=== PATIENT | female | born 1940 | race Caucasian/White ===

== ENCOUNTER 2016-10-22 11:02 | Emergency (ER) | payer OTHER ==
[~2016-10-22] VITALS: Ht 157.5 cm; Wt 66.7 kg
[2016-10-22 11:03] VITALS: BP 103/35
[2016-10-22] MEDS ORDERED: TRANDATE 200 M200 M1 PO (11:32)
[2016-10-22] MEDS ORDERED: AMARYL2 M1 PO (11:32)
[2016-10-22] MEDS ORDERED: PLAVIX 75 MG TA75 M1 PO (11:32)
[2016-10-22] MEDS ORDERED: LIPITOR 20 MG T20 M1 PO (11:32)
[2016-10-22] MEDS ORDERED: ASPIR 8181 MG PO (11:32)
[2016-10-22] MEDS ORDERED: COZAAR 50 MG TA50 M2 PO (11:33)
[2016-10-22] MEDS ORDERED: NORCO 5-325 TA1 EACH PO (12:12)
== END 2016-10-22 12:25 | disposition home or self-care (01) ==
LOC: ER 11:02
DX: S46.911A Strain of unspecified muscle, fascia and tendon at shoulder and upper arm level, right arm, initial encounter (principal); Z88.2 Allergy status to sulfonamides; W18.30XA Fall on same level, unspecified, initial encounter; Y93.89 Activity, other specified; Y92.89 Other specified places as the place of occurrence of the external cause; Y99.9 Unspecified external cause status